=== PATIENT | male | born 1975 | race Caucasian/White ===

== ENCOUNTER 2024-06-24 18:35 | Inpatient (IN) | payer OTHER ==
[~2024-06-24] VITALS: Ht 180.3 cm; Wt 103.9 kg
[2024-06-24] VITALS (7 sets, daily range): BP systolic 109–122; BP diastolic 81–84; PULSE 59–81; RESP 11–15; TEMP 37.1; O2SAT 99–100
[2024-06-24] MEDS: ASPIRIN 325MG TABLET PO ONE (18:56)
[2024-06-24] MEDS: HEPARIN 5000 UNITS/ML VIAL IV ONE (18:58)
[2024-06-24 19:25] LABS: CARBON DIOXIDE 27 mEq/L (21-32); CHLORIDE 107 mEq/L (98-107); POTASSIUM 3.7 mEq/L (3.5-5.1); SODIUM 142 mEq/L (136-145)
[2024-06-24] MEDS ORDERED: HEPARIN 1000 UNITS/ML 10ML ONE (19:29)
[2024-06-24] MEDS ORDERED: FENTANYL CITRATE/PF 50MCG/ML 2ML VIAL ONE ×2 (19:29→20:20)
[2024-06-24] MEDS ORDERED: MIDAZOLAM HCL 2 MG/2 ML VIAL ONE ×2 (19:29→19:46)
[2024-06-24] MEDS ORDERED: EPINEPHRINE 0.1MG/ML (1:10,000) 10ML SYR ONE (19:29)
[2024-06-24] MEDS ORDERED: IODIXANOL 320 MG/ML 150ML BOTTLE IV ONE (19:29)
[2024-06-24] MEDS ORDERED: LIDOCAINE HCL 1% 20ML VIAL ONE (19:30)
[2024-06-24] MEDS ORDERED: ATROPINE SULFATE 1MG/10ML SYR ONE (19:30)
[2024-06-24 19:31] LABS: CREATININE 0.9 mg/dL (0.6-1.3); GLUCOSE 138 mg/dL (70-105); UREA NITROGEN BLOOD 8 mg/dL (9-23)
[2024-06-24 20:09] LABS: TROPONIN I HIGH SENSITIVITY 691 ng/L (3.0-53)
[2024-06-24] MEDS ORDERED: IODIXANOL 320MG/ML 100 ML BOTTLE IV ONE ×2 (20:10→20:43)
[2024-06-24] MEDS ORDERED: TICAGRELOR 90 MG TABLET PO ONE (20:47)
[2024-06-24] MEDS ORDERED: MAGNESIUM/ALUMINUM HYDROXIDE/SIMETHICONE 30ML UDC PO PRN (21:45)
[2024-06-24] MEDS ORDERED: DOCUSATE SODIUM 100MG CAPSULE PO PRN (21:45)
[2024-06-24] MEDS ORDERED: MORPHINE SULFATE 2 MG/ML INJ (NOT FOR IM USE) IV PRN (21:45)
[2024-06-24] MEDS ORDERED: GUAIFENESIN 200MG/10ML SUGAR FREE UDC PO PRN (21:45)
[2024-06-24] MEDS ORDERED: HYDROCODONE/ACETAMINOPHEN 5/325MG TABLET PO PRN (21:45)
[2024-06-24] MEDS ORDERED: CLONIDINE 0.1MG TABLET PO PRN (21:45)
[2024-06-24] MEDS ORDERED: DIPHENHYDRAMINE 50MG/ML VIAL IV PRN (21:45)
[2024-06-24] MEDS ORDERED: ACETAMINOPHEN 325MG TABLET PO PRN ×2 (21:45)
[2024-06-24] MEDS ORDERED: IPRATROPIUM/ALBUTEROL 0.5-3(2.5)MG/3ML NEB HHN PRN (21:45)
[2024-06-24] MEDS ORDERED: NA PHOS,M-B/NA PHOS,DI-BA ENEMA 118ML PR PRN (21:45)
[2024-06-24] MEDS ORDERED: ASPIRIN 81MG TABLET PO NR (22:05)
[2024-06-24] MEDS: ONDANSETRON HCL 4MG/2ML INJ IV PRN (22:26)
[2024-06-24 22:55] LABS: BASOPHILS % 0.7 % (0.0-2.0); EOSINOPHILS % 0.8 % (0.0-5.0); HEMOGLOBIN. 13.9 g/dL (14.0-18.0); LYMPHOCYTES % 15.6 % (20.0-50.0); MEAN CORPUSCULAR HEMOGLOBIN 30.8 pg (28.0-32.0); MEAN CORPUSCULAR HGB CONC 33.9 g/dL (31.0-37.0); MEAN CORPUSCULAR VOLUME 90.9 fL (80.0-94.0); MEAN PLATELET VOLUME 8.5 fl (7.4-10.4); NEUTROPHILS % 77.9 % (40.0-76.0); PLATELET 165 x1000/uL (130-400); RED BLOOD CELL COUNT 4.52 mill/uL (4.7-6.1); WHITE BLOOD COUNT 9.5 x1000/uL (4.5-11.0)
[2024-06-24 23:05] LABS: CREATINE KINASE MB FRACTION 14.8 ng/mL (0.5-3.6)
[2024-06-24] MEDS: PANTOPRAZOLE SODIUM 40 MG/VIAL IV NR (23:06)
[2024-06-25] VITALS (48 sets, daily range): BP systolic 114–142; BP diastolic 75–99; PULSE 58–90; RESP 10–66; TEMP 36.4–37.5; O2SAT 91–100
[2024-06-25 02:50] LABS: CLARITY URINE CLEAR (CLEAR); COLOR URINE YELLOW (YELLOW); GLUCOSE URINE NEGATIVE (NEGATIVE); KETONES URINE 1+ (NEGATIVE); LEUKOCYTE ESTERASE URINE NEGATIVE (NEGATIVE); NITRITE URINE NEGATIVE (NEGATIVE); OCCULT BLOOD URINE NEGATIVE (NEGATIVE); PH URINE 7.5 (4.5-8.0); PROTEIN URINE NEGATIVE (NEGATIVE); SPECIFIC GRAVITY URINE 1.053 (1.005-1.030); UROBILINOGEN URINE 0.2 E.U./dL (0.2-1.0)
[2024-06-25 03:07] LABS: *AMPHETAMINES SCREEN URINE NEGATIVE (NEGATIVE); *BARBITURATES SCREEN URINE NEGATIVE (NEGATIVE); *BENZODIAZEPINES SCREEN URINE PRESUMPTIVE POSITIVE (NEGATIVE); *COCAINE SCREEN URINE NEGATIVE (NEGATIVE); METHADONE URINE SCREEN NEGATIVE (NEGATIVE); OPIATES URINE SCREEN NEGATIVE (NEGATIVE)
[2024-06-25 03:08] LABS: CANNABINOID URINE SCREEN NEGATIVE (NEGATIVE); PHENCYCLIDINE URINE SCREEN NEGATIVE (NEGATIVE)
[2024-06-25 04:39] LABS: ECSTASY MDMA SCREEN URINE NEGATIVE (NEGATIVE)
[2024-06-25 07:12] LABS: BASOPHILS % 0.4 % (0.0-2.0); EOSINOPHILS % 1.7 % (0.0-5.0); HEMATOCRIT. 42.7 % (42.0-52.0); HEMOGLOBIN. 14.5 g/dL (14.0-18.0); LYMPHOCYTES % 15.9 % (20.0-50.0); MEAN CORPUSCULAR HEMOGLOBIN 30.8 pg (28.0-32.0); MEAN CORPUSCULAR VOLUME 90.8 fL (80.0-94.0); MEAN PLATELET VOLUME 8.8 fl (7.4-10.4); PLATELET 173 x1000/uL (130-400); RED CELL DISTRIBUTION WIDTH 13.5 % (11.6-14.6); WHITE BLOOD COUNT 9.4 x1000/uL (4.5-11.0)
[2024-06-25 07:58] LABS: CARBON DIOXIDE 28 mEq/L (21-32); CHLORIDE 106 mEq/L (98-107); SODIUM 141 mEq/L (136-145)
[2024-06-25 08:01] LABS: UREA NITROGEN BLOOD 7 mg/dL (9-23)
[2024-06-25 08:03] LABS: ALANINE AMINOTRANSFERASE 22 IU/L (10-49); CREATININE 0.9 mg/dL (0.6-1.3); GLUCOSE 138 mg/dL (70-105)
[2024-06-25 08:04] LABS: ASPARTATE AMINOTRANSFERASE 53 IU/L (<34); LDL CHOLESTEROL 120 mg/dL (5-100); TRIGLYCERIDE 78 mg/dL (0-150)
[2024-06-25 08:05] LABS: ALBUMIN 3.8 g/dL (3.2-4.8); CHOLESTEROL 167 mg/dL (<200); HDL CHOLESTEROL 36 mg/dL (>55)
[2024-06-25 08:06] LABS: BILIRUBIN TOTAL 1.1 mg/dL (0.1-1.0); PROTEIN TOTAL 5.8 g/dL (6.0-8.3)
[2024-06-25] MEDS ORDERED: ASPIRIN 81MG TABLET PO SCH ×2 (09:00→22:15)
[2024-06-25] MEDS: PANTOPRAZOLE SODIUM 40 MG/VIAL IV SCH ×2 (09:00→09:46)
[2024-06-25 09:44] LABS: TROPONIN I HIGH SENSITIVITY 7679 ng/L (3.0-53)
[2024-06-25] MEDS: LISINOPRIL 2.5MG TABLET PO SCH (09:47)
[2024-06-25] MEDS: TICAGRELOR 90 MG TABLET PO SCH (09:48)
[2024-06-25] MEDS: CARVEDILOL 3.125 MG TABLET PO SCH (09:49)
[2024-06-25] MEDS: ASPIRIN 81MG TABLET PO SCH (10:32)
[2024-06-25] MEDS ORDERED: NALOXONE HCL 0.4MG/ML VIAL IV PRN (20:30)
[2024-06-25] MEDS: ATORVASTATIN CALCIUM 40MG TABLET PO SCH (22:09)
[2024-06-26 00:02] VITALS: BP 142/83; PULSE 66; RESP 66; TEMP 36.4; O2SAT 96
[2024-06-26 00:44] VITALS: BP 142/83; PULSE 71; RESP 15; TEMP 35
[2024-06-26 04:02] VITALS: BP 139/91; PULSE 66; RESP 14; TEMP 36.3; O2SAT 95
[2024-06-26 06:59] LABS: HEMATOCRIT 42.5 % (42.0-52.0); HEMOGLOBIN 14.4 g/dL (14.0-18.0); MEAN CORPUSCULAR HEMOGLOBIN 30.6 pg (28.0-32.0); MEAN CORPUSCULAR HGB CONC 33.9 g/dL (31.0-37.0); MEAN CORPUSCULAR VOLUME 90.3 fL (80.0-94.0); PLATELET 171 x1000/uL (130-400); RED BLOOD CELL COUNT 4.71 mill/uL (4.7-6.1); RED CELL DISTRIBUTION WIDTH 13.5 % (11.6-14.6); WHITE BLOOD COUNT 11.1 x1000/uL (4.5-11.0)
[2024-06-26 07:10] LABS: CARBON DIOXIDE 25 mEq/L (21-32); CHLORIDE 107 mEq/L (98-107); POTASSIUM 3.9 mEq/L (3.5-5.1); SODIUM 139 mEq/L (136-145)
[2024-06-26 07:11] LABS: CALCIUM 9.1 mg/dL (8.7-10.4)
[2024-06-26 07:15] LABS: CREATININE 0.8 mg/dL (0.6-1.3); GLUCOSE 102 mg/dL (70-105)
[2024-06-26 07:16] LABS: UREA NITROGEN BLOOD 8 mg/dL (9-23)
[2024-06-26 08:00] VITALS: BP 127/97; PULSE 90; RESP 20; TEMP 36.7; O2SAT 96
[2024-06-26 12:00] VITALS: BP 117/77; PULSE 88; RESP 19; TEMP 36.6; O2SAT 97
[2024-06-26 12:35] VITALS: BP 127/97; PULSE 90; TEMP 97.8; O2SAT 96
[2024-06-26] MEDS ORDERED: ASPI-1160 PO (12:51)
[2024-06-26] MEDS ORDERED: LISI2.5T47 PO (12:51)
[2024-06-26] MEDS ORDERED: LIP40 PO (12:51)
[2024-06-26] MEDS ORDERED: COR3 PO (12:51)
[2024-06-26] MEDS ORDERED: TICA90TA PO (12:51)
== END 2024-06-26 14:00 | disposition home or self-care (01) | DRG 321 ==
LOC: ER 18:35 → EDBEDREQTM 19:50 → EDBEDREQ 19:50 → CVICU 21:56 → 3WST 06-25 13:25
PROVIDERS: ADMIT Hospitalist; ATTEND Hospitalist
PROC: B211YZZ Fluoroscopy of Multiple Coronary Arteries using Other Contrast (ICD-10-PCS; principal; 2024-06-24)
PROC: 027136Z Dilation of Coronary Artery, Two Arteries with Three Drug-eluting Intraluminal Devices, Percutaneous Approach (ICD-10-PCS; 2024-06-24)
PROC: 4A023N7 Measurement of Cardiac Sampling and Pressure, Left Heart, Percutaneous Approach (ICD-10-PCS; 2024-06-24)
PROC: B215YZZ Fluoroscopy of Left Heart using Other Contrast (ICD-10-PCS; 2024-06-24)
PROC: B41FYZZ Fluoroscopy of Right Lower Extremity Arteries using Other Contrast (ICD-10-PCS; 2024-06-24)
DX: I21.09 ST elevation (STEMI) myocardial infarction involving other coronary artery of anterior wall (principal); I50.43 Acute on chronic combined systolic (congestive) and diastolic (congestive) heart failure; E78.5 Hyperlipidemia, unspecified; F17.210 Nicotine dependence, cigarettes, uncomplicated; I11.0 Hypertensive heart disease with heart failure; I25.10 Atherosclerotic heart disease of native coronary artery without angina pectoris; Z82.49 Family history of ischemic heart disease and other diseases of the circulatory system
CPT/HCPCS: 36415; 71045; 80048; 80053; 80061; 80305; 81003; 82553; 83036; 83605; 83735; 83880; 84484; 85025; 85027; 86850; 86900; 92928; 92929; 93005; 93306; 93458; 94640; 99291; A4606; C1725; C1769; C1874; C1887; C1893; J0461; J1644; J2250; J2405; J2470; J3010; J3490; Q9967; J8499